=== PATIENT | male | born 1990 | race African-American/Black ===

== ENCOUNTER 2018-06-14 21:10 | Emergency (ER) | payer OTHER ==
[2018-06-14] MEDS ORDERED: Ibuprofen 800 MG TAB ONE (21:22)
[2018-06-14] MEDS ORDERED: Penicillin V Potassium 250 MG TAB ONE (21:22)
== END 2018-06-14 21:25 | disposition home or self-care (01) ==
LOC: NAV ERS 21:10
DX: J02.0 Streptococcal pharyngitis (principal)
CPT/HCPCS: 99283

== ENCOUNTER 2019-09-26 20:40 | Emergency (ER) | payer SELFPAY ==
[2019-09-26] MEDS ORDERED: Acetaminophen 500 MG TAB ONE (21:07)
== END 2019-09-26 21:18 | disposition home or self-care (01) ==
LOC: NAV ERS 20:40
DX: S06.9X1A Unspecified intracranial injury with loss of consciousness of 30 minutes or less, initial encounter (principal); S16.1XXA Strain of muscle, fascia and tendon at neck level, initial encounter; S00.03XA Contusion of scalp, initial encounter; W10.9XXA Fall (on) (from) unspecified stairs and steps, initial encounter
CPT/HCPCS: 99283